=== PATIENT | male | born 1945 | race Caucasian/White ===

== ENCOUNTER 2017-07-13 08:39 | Emergency (ER) | payer MEDICARE, OTHER ==
[~2017-07-13] VITALS: Ht 172.7 cm; Wt 72.6 kg
[~2017-07-13 08:39] MED LIST: ASACOL HD800 MG PO; ASPIRIN81 M2 PO; BAYER CHEWABLE81 MG PO; EFFIENT10 MG PO; LIPITOR40 MG PO; LISINOPRIL10 MG PO; LISINOPRIL20 MG PO; LOPRESSOR 12.12.5 MG PO; NITROSTAT0.4 MG SL; PANTOPRAZOLE SO40 M1 PO
[2017-07-13 08:44] VITALS: BP 165/61
[2017-07-13] MEDS ORDERED: ZPAK PO (08:51)
[2017-07-13] MEDS ORDERED: PREDNISONE 20 M20 M1 PO (08:51)
== END 2017-07-13 08:56 | disposition home or self-care (01) ==
LOC: M.ERS 08:39
DX: J06.9 Acute upper respiratory infection, unspecified (principal); I10 Essential (primary) hypertension; E78.00 Pure hypercholesterolemia, unspecified; I25.2 Old myocardial infarction; I25.10 Atherosclerotic heart disease of native coronary artery without angina pectoris; F17.210 Nicotine dependence, cigarettes, uncomplicated; F10.99 Alcohol use, unspecified with unspecified alcohol-induced disorder

== ENCOUNTER → 2018-09-09 | Outpatient (CLI) | payer MEDICARE, OTHER ==
[~2018-09-09] MED LIST changes: +PREDNISONE 20 M20 M1 PO; +ZPAK PO
== END ==
LOC: M.ULTRA 10:01
DX: I65.23 Occlusion and stenosis of bilateral carotid arteries (principal); I77.9 Disorder of arteries and arterioles, unspecified